=== PATIENT | female | born 1995 | race Caucasian/White ===

== ENCOUNTER 2022-10-17 12:36 | Emergency (ER) | payer SELFPAY ==
[~2022-10-17] VITALS: Ht 172.7 cm; Wt 81.6 kg
[2022-10-17 12:50] VITALS: BP 110/69
[2022-10-17] MEDS ORDERED: ZOLOFT50 MG PO (13:04)
[2022-10-17] MEDS ORDERED: XANAX1 MG PO (13:04)
[2022-10-17 13:23] LABS: URINE BILIRUBIN - DIPSTICK NEGATIVE (NEGATIVE); URINE BLOOD DIPSTICK NEGATIVE (NEGATIVE); URINE COLOR YELLOW; URINE GLUCOSE - DIPSTICK NEGATIVE (NEGATIVE); URINE KETONE NEGATIVE (NEGATIVE); URINE LEUK ESTERASE TRACE (NEGATIVE); URINE PROTEIN - DIPSTICK NEGATIVE (NEG-TRACE); URINE SPECIFIC GRAVITY 1.025; URINE UROBILINOGEN - DIPSTICK 0.2 E.U./dL (0.2)
[2022-10-17 13:25] LABS: BASO% 0.5 % (0-3); EOS% 1.8 % (0-8); HEMATOCRIT 40.1 % (37.0-47.0); HEMOGLOBIN 13.3 g/dl (12.0-16.0); LYMPH% 28.9 % (15-41); MEAN CELL VOLUME 87.9 fL CALC (80.0-100.0); MEAN CORPUSCULAR HGB 29.2 pG CALC (26.0-32.0); MEAN CORPUSCULAR HGB CONC 33.2 g/dL CAL (32.0-36.0); MONO% 8.8 % (2-13); NEUT# 3.97 thou/uL (2.00-7.15); RED BLOOD COUNT 4.56 mill/uL (4.20-5.60)
[2022-10-17 13:30] VITALS: BP 114/69
[2022-10-17 13:30] LABS: URINE NITRITE - DIPSTICK NEGATIVE (Negative)
[2022-10-17 13:41] LABS: ALBUMIN 4.1 g/dL (3.2-5.0); ALKALINE PHOSPHATASE 44 u/l (38-126); ANION GAP 14 (6-22 (CALC)); BILIRUBIN, TOTAL 0.4 mg/dL (0.02-1.3); BUN 12 mg/dL (7-17); BUN/CREATININE RATIO 19 (12-20 (CALC)); CARBON DIOXIDE 22 mmol/l (22-30); CHLORIDE 108 mmol/l (95-108); CREATININE 0.6 mg/dL (0.5-1.0); GFR FOR AFR.AMER. > 60 ML/MIN (>=60 (CALC)); GFR OTHER RACES > 60 ML/MIN (>=60 (CALC)); LIPASE 48 u/l (23-300); SGOT/AST 28 u/l (14-36); SODIUM 139 mmol/l (137-146); TOTAL PROTEIN 6.9 g/dL (6.3-8.2)
[2022-10-17] MEDS ORDERED: ZOFRAN4 MG/TAB PO (13:54)
[2022-10-17] MEDS ORDERED: PROTONIX40 M2 PO (13:54)
[2022-10-17 14:51] VITALS: BP 114/69
== END 2022-10-17 15:02 | disposition home or self-care (01) | DRG 392 ==
LOC: ED 12:36
PROVIDERS: Nurse Practitioner
DX: K29.70 Gastritis, unspecified, without bleeding (principal); Z20.822 Contact with and (suspected) exposure to COVID-19
CPT/HCPCS: S0164

== ENCOUNTER 2023-06-08 19:13 | Emergency (ER) | payer SELFPAY ==
[~2023-06-08] VITALS: Ht 172.7 cm; Wt 76.0 kg
[~2023-06-08 19:13] MED LIST: PROTONIX40 M2 PO; XANAX1 MG PO; ZOFRAN4 MG/TAB PO; ZOLOFT50 MG PO
[2023-06-08 20:29] VITALS: BP 119/78
== END 2023-06-08 20:34 | disposition home or self-care (01) | DRG 153 ==
LOC: ED 19:13
DX: J06.9 Acute upper respiratory infection, unspecified (principal); F17.200 Nicotine dependence, unspecified, uncomplicated; Z20.822 Contact with and (suspected) exposure to COVID-19